=== PATIENT | male | born 1950 | race Caucasian/White ===

== ENCOUNTER → 2016-06-19 | Outpatient (CLI) | payer MEDICARE, BC ==
[~2016-06-19] MED LIST: ALLO100T PO; AMOX500C2 PO; BLUE500T PO; CYCL25CA2 PO; DILT120C47 PO; FISH1CAP2 PO; FURO20TA4 PO; GADOBUTROL 10mMol/10ml INJECTION IV ONE; MULT1TAB69 PO; MYCO360T PO; NORMAL SALINE 50 ML IV ONE; PRAV20TA PO; PRED2.5T PO; SALINE FLUSH 10ml SYRINGE ONE; TAMS-1 PO
--- NOTE | 2016-06-19 10:03 | DI ---
Indication: ITS.REASON: N18.5 CHRONIC KIDNEY DISEASE, STAGE 5; Z94.1; R80.1; N28.1 PROCEDURE: MRI ABDOMEN W/WO CONTRAST: Encounter: Initial Comparison: Renal CT dated April 25, 2016 Technique: Multiplanar multisequence MR imaging of the abdomen was performed with and without contrast. Contrast: 5 mL Gadavist Findings: Polycystic kidney disease is again noted with innumerable cysts throughout both kidneys. There are a couple intrinsically T1 hyperintense cysts in each kidney which probably represent proteinaceous cysts or cysts with prior hemorrhage. The liver is grossly normal. The spleen appears normal. The 2 cm cystic lesion of concern in the tail of the pancreas shows uniform T2 hyperintensity and T1 hypointensity without postcontrast enhancement. This does not obviously communicate with the main pancreatic duct. Adrenal glands are grossly normal. Dynamic postcontrast imaging shows no concerning enhancing liver lesion. None of the renal lesions shows worrisome postcontrast enhancement. Impression: 1. The 2 cm cystic lesion arising from the pancreatic tail appears completely benign. This could represent a pseudocyst or less likely side branch intraductal papillary mucinous tumor. 2. Numerous bilateral renal cysts also appear benign. No evidence of worrisome enhancing renal mass. .
== END ==
LOC: IMA 07:23
PROVIDERS: ATTEND Internal Medicine Nephrology
DX: N18.5 Chronic kidney disease, stage 5 (principal); N28.1 Cyst of kidney, acquired; K76.9 Liver disease, unspecified; R80.1 Persistent proteinuria, unspecified; Z94.1 Heart transplant status
CPT/HCPCS: 74183; A9585; J7050